=== PATIENT | male | born 1960 | race Caucasian/White ===

== ENCOUNTER 2018-03-28 13:34 | Inpatient (IN) | payer OTHER ==
[~2018-03-28] VITALS: Ht 172.7 cm; Wt 76.8 kg
[2018-03-28 13:46] VITALS: Ht 172.7 cm; Wt 76.8 kg
[2018-03-28 14:25] LABS: BASOPHIL % 0.6 % (0-2); PLATELET COUNT 166 x10^3mcL (130-400); RED CELL DISTRIBUTION WIDTH 13.9 % (11.5-14.5)
[2018-03-28 14:30] LABS: CALCIUM 7.2 mg/dL (8.5-10.1); CARBON DIOXIDE 25.1 mmol/L (21-32); CHLORIDE SERUM 108 mmol/L (98-107); GFR1 > 60 mL/min; GLUCOSE SERUM 114 mg/dL (74-106); POTASSIUM SERUM 3.7 mmol/L (3.5-5.1); SODIUM SERUM 141 mmol/L (136-145)
[2018-03-28] MEDS ORDERED: [UNRECOGNIZED DRUG - REMARK] (14:53)
[2018-03-28] MEDS ORDERED: TAMSULOSIN HYD0.4 M1 PO (14:55)
[2018-03-28 16:36] VITALS: BP 125/81
[2018-03-28 17:15] LABS: CHOLESTEROL/HDL RATIO 4.2; MAGNESIUM 2.3 mg/dL (1.8-2.4)
[2018-03-28 17:25] LABS: T3 TOTAL 1.26 ng/mL
[2018-03-28 17:50] LABS: FREE T4 0.87 ng/dL (0.76-1.46); FREE THYROXINE INDEX 2.2 ug/dL (1.4-4.5); T4(THYROXINE) 6.4 ug/dL (4.7-13.3)
[2018-03-28 18:12] LABS: microscopic required? NO
[2018-03-28 18:32] LABS: UA SPECIFIC GRAVITY <=1.005 (1.005-1.035); urine erythrocyte NEGATIVE (NEGATIVE)
[2018-03-28 21:07] VITALS: BP 154/99
[2018-03-29 04:50] VITALS: BP 115/74
[2018-03-29 06:01] LABS: BASOPHIL % 0.6 % (0-2); PLATELET COUNT 161 x10^3mcL (130-400); RED CELL DISTRIBUTION WIDTH 14.2 % (11.5-14.5)
[2018-03-29 06:12] LABS: CALCIUM 8.3 mg/dL (8.5-10.1); CARBON DIOXIDE 25.7 mmol/L (21-32); CHLORIDE SERUM 106 mmol/L (98-107); CREATININE SERUM 0.9 mg/dL (0.7-1.3); GFR1 > 60 mL/min; GLUCOSE SERUM 88 mg/dL (74-106); POTASSIUM SERUM 3.8 mmol/L (3.5-5.1); SODIUM SERUM 140 mmol/L (136-145)
[2018-03-29 09:20] VITALS: BP 118/77
[2018-03-29 12:26] VITALS: BP 118/77
[2018-03-29 13:19] VITALS: BP 127/86
== END 2018-03-29 17:05 | disposition left against medical advice (07) | DRG 204 ==
LOC: ED 13:34 → DU 15:01
PROVIDERS: Emergency Medicine; Family Medicine
DX: R55 Syncope and collapse (principal); E83.51 Hypocalcemia; E86.0 Dehydration; N40.0 Benign prostatic hyperplasia without lower urinary tract symptoms; Z82.3 Family history of stroke
CPT/HCPCS: 83880; 84439; J7030; Q0092

== ENCOUNTER 2019-10-26 16:12 | Emergency (ER) | payer OTHER ==
[~2019-10-26] VITALS: Ht 177.8 cm; Wt 76.7 kg
[~2019-10-26 16:12] MED LIST: TAMSULOSIN HYD0.4 M1 PO; [UNRECOGNIZED DRUG - REMARK]
[2019-10-26 16:18] VITALS: Ht 177.8 cm; Wt 76.7 kg
[2019-10-26 17:26] VITALS: BP 135/89
== END 2019-10-26 17:26 | disposition home or self-care (01) ==
LOC: ED 16:12
DX: L03.115 Cellulitis of right lower limb (principal); I10 Essential (primary) hypertension

== ENCOUNTER 2020-11-11 15:43 | Emergency (ER) | payer OTHER ==
[~2020-11-11] VITALS: Ht 170.2 cm; Wt 73.9 kg
[2020-11-11 15:52] VITALS: Ht 170.2 cm; Wt 73.9 kg
[2020-11-11 16:58] VITALS: BP 134/78
== END 2020-11-11 16:58 | disposition home or self-care (01) ==
LOC: ED 15:43
DX: L03.115 Cellulitis of right lower limb (principal); I10 Essential (primary) hypertension